=== PATIENT | male | born 1990 | race Caucasian/White ===

== ENCOUNTER 2017-07-12 01:04 | Emergency (ER) | payer OTHER ==
[~2017-07-12] VITALS: Ht 198.1 cm; Wt 88.9 kg
[2017-07-12 01:12] VITALS: BP 133/71
[2017-07-12] MEDS ORDERED: ALBUTEROL MDI (02:27)
== END 2017-07-12 03:26 | disposition home or self-care (01) ==
LOC: ED 03:19
DX: K08.89 Other specified disorders of teeth and supporting structures (principal)
CPT/HCPCS: 99283